=== PATIENT | female | born 1965 ===

== ENCOUNTER 2020-07-19 18:31 | Emergency (ER) | payer OTHER ==
[2020-07-19] MEDS ORDERED: Aspirin 81 MG Tab.Chew PO ONE (18:48)
[2020-07-19] MEDS ORDERED: Sodium Chloride 0.9% 10 ML Syringe FLUSH PRN (18:48)
[2020-07-19] MEDS: Nitroglycerin 0.4 MG Tab.SL SL PRN ×3 (18:50→19:51)
[2020-07-19] MEDS ORDERED: Pantoprazole 40 MG Vial IVPUSH ONE (18:50)
--- NOTE | 2020-07-19 18:53 | EDM.PDOC ---
ED HPI GENERAL MEDICAL PROBLEM - General Chief Complaint: Cardiovascular Problem Stated Complaint: CHEST PAIN Time Seen by Provider: 07/19/20 18:49 Source of Information: Reports: Patient History Limitations: Reports: No Limitations - History of Present Illness INITIAL COMMENTS - FREE TEXT/NARRATIVE: Presents with substernal chest pressure that began @2 hours. Pain radiates to back. Chest pain now more sharp. Did feel SOB at home. PMHx significant for Asthma. No prior h/o CAD or DVT/PE. Denies abdominal pain or nausea. No significant family history of CAD. Duration: Hour(s): (2) Location: Reports: Chest Severity: Moderate L anterior chest radiating into L lat neck Pain Score (Numeric/FACES): 7 - Related Data Allergies Allergy/AdvReac Type Severity Reaction Status Date / Time No Known Allergies Allergy Verified 05/29/14 12:16 Home Meds: Home Meds Lisinopril/Hydrochlorothiazide [Lisinopril-Hctz 10-12.5 mg Tab] 1 tab BEDTIME 07/19/20 [History] Pantoprazole Sodium [Protonix] 40 mg PO DAILY #14 tablet.dr 07/19/20 [Rx] rOPINIRole [Requip] 1 mg PO TID PRN 07/19/20 [History] Past Medical History Cardiovascular History: Denies: Blood Clots/VTE/DVT, CAD, [place] Respiratory History: Reports: Asthma ED ROS GENERAL - Review of Systems Review Of Systems: Comprehensive ROS is negative, except as noted in HPI. ED EXAM, GENERAL - Physical Exam Exam: See Below Exam Limited By: No Limitations General Appearance: Alert, WD/WN, No Apparent Distress Throat/Mouth: No Airway Compromise Head: Atraumatic, Normocephalic Neck: Full Range of Motion Respiratory/Chest: No Respiratory Distress, Lungs Clear, Normal Breath Sounds, No Accessory Muscle Use, Chest Non-Tender Cardiovascular: Regular Rate, Rhythm, No Murmur GI/Abdominal: Normal Bowel Sounds, Soft, Non-Tender, No Distention Back Exam: Full Range of Motion Extremities: Normal Range of Motion, No Pedal Edema Neurological: Alert, Oriented, Normal Cognition Psychiatric: Normal Affect, Anxious Skin Exam: Warm, Dry, Intact, Normal Color #1 Interpretation EKG Date: 07/19/20 Time: 18:41 Rhythm: NSR Rate (Beats/Min): 82 [place]: Normal P-Wave: Present QRS: Normal ST-T: Normal QT: Normal #2 Interpretation EKG Date: 07/19/20 Time: 21:29 Rhythm: NSR Rate (Beats/Min): 79 [place]: Normal P-Wave: Present QRS: Normal ST-T: Normal QT: Normal Comparison: No Change (from EKG #1) Course - Vital Signs Last Recorded V/S: Last Vital Signs Temp 36.5 C 07/19/20 18:31 Pulse 89 07/19/20 22:43 Resp 22 H 07/19/20 18:31 BP 140/107 H 07/19/20 19:51 Pulse Ox 98 07/19/20 22:43 - Orders/Labs/Meds Orders: Active Orders 24 hr Category Date Time Status EKG Documentation Completion [RC] ASDIRECTED Care 07/19/20 18:48 Active EKG Documentation Completion [RC] ASDIRECTED Care 07/19/20 20:15 Active RT Aerosol Therapy [RC] ASDIRECTED Care 07/19/20 22:35 Active Ang Chest [CT] Stat Exams 07/19/20 19:53 Taken CXR [Chest 1V Frontal] [CR] Stat Exams 07/19/20 18:48 Taken Sodium Chloride 0.9% [Saline Flush] Med 07/19/20 18:48 Active 10 ml FLUSH ASDIRECTED PRN Saline Lock Insert [OM.PC] Routine Oth 07/19/20 18:48 Ordered EKG 12 Lead [EK] Stat Ther 07/19/20 18:48 Ordered EKG 12 Lead [EK] Stat Ther 07/19/20 21:30 Ordered Medication Orders Sodium Chloride (Saline Flush) 10 ml FLUSH ASDIRECTED PRN PRN Reason: Keep Vein Open Last Admin: 07/19/20 18:49 Dose: 10 ml Documented by: KVNG Labs: Laboratory Tests 07/19/20 07/19/20 07/19/20 Range/Units 18:40 18:40 18:40 WBC 11.3 H (3.0-10.3) x10-3/uL RBC 4.74 (3.60-5.20) x10(6)uL Hgb 13.2 (11.4-15.5) g/dL Hct 39.6 (34.2-48.2) % MCV 83.6 (76.7-100.5) fL MCH 27.8 (23.9-33.9) pg MCHC 33.3 (31.9-34.8) g/dL RDW 13.9 (12.3-16.5) % Plt Count 286 (151-488) x10(3)uL MPV 7.3 (7.1-12.4) fL Neut % (Auto) 51.4 (30.8-76.2) % Lymph % (Auto) 39.0 (18.4-52.1) % [place] % (Auto) 5.4 (4.4-15.7) % Eos % (Auto) 2.8 (0.6-8.1) % Baso % (Auto) 1.4 (0.2-1.5) % Neut # (Auto) 5.8 (1.5-6.3) x10-3/uL Lymph # (Auto) 4.4 (1.0-4.4) x10-3/uL [place] # (Auto) 0.6 (0.3-1.0) x10-3/uL Eos # (Auto) 0.3 (0.0-0.8) x10-3/uL Baso # (Auto) 0.2 H (0.0-0.1) x10-3/uL PT 10.1 (9.0-11.1) sec INR 0.94 L (1.00-1.24) APTT 23.4 L (24.4-33.2) SECONDS D-Dimer, Quantitative 0.78 H (0.0-0.59) mg/LFEU Sodium 142 (135-145) mmol/L Potassium 3.2 L (3.5-5.3) mmol/L Chloride 102 (100-110) mmol/L Carbon Dioxide 29 (21-32) mmol/L BUN 12 (7-18) mg/dL Creatinine 0.9 (0.55-1.02) mg/dL Est Cr Clr Drug Dosing TNP Estimated GFR (MDRD) > 60 (>60) BUN/Creatinine Ratio 13.3 (9-20) Glucose 105 (80-116) mg/dL Calcium 8.6 (8.6-10.2) mg/dL Total Bilirubin 0.2 (0.1-1.3) mg/dL AST 20 (5-25) IU/L ALT 32 (12-36) U/L Alkaline Phosphatase 104 (56-112) IU/L Troponin I (4.0-60.3) pg/mL Total Protein 7.9 (6.0-8.0) g/dL Albumin 4.1 (3.5-5.2) g/dL Globulin 3.8 g/dL Albumin/Globulin Ratio 1.1 SARS-CoV-2 RNA (EDDY) (NEGATIVE) 07/19/20 07/19/20 07/19/20 Range/Units 18:40 21:26 21:30 WBC (3.0-10.3) x10-3/uL RBC (3.60-5.20) x10(6)uL Hgb (11.4-15.5) g/dL Hct (34.2-48.2) % MCV (76.7-100.5) fL MCH (23.9-33.9) pg MCHC (31.9-34.8) g/dL RDW (12.3-16.5) % Plt Count (151-488) x10(3)uL MPV (7.1-12.4) fL Neut % (Auto) (30.8-76.2) % Lymph % (Auto) (18.4-52.1) % [place] % (Auto) (4.4-15.7) % Eos % (Auto) (0.6-8.1) % Baso % (Auto) (0.2-1.5) % Neut # (Auto) (1.5-6.3) x10-3/uL Lymph # (Auto) (1.0-4.4) x10-3/uL [place] # (Auto) (0.3-1.0) x10-3/uL Eos # (Auto) (0.0-0.8) x10-3/uL Baso # (Auto) (0.0-0.1) x10-3/uL PT (9.0-11.1) sec INR (1.00-1.24) APTT (24.4-33.2) SECONDS D-Dimer, Quantitative (0.0-0.59) mg/LFEU Sodium (135-145) mmol/L Potassium (3.5-5.3) mmol/L Chloride (100-110) mmol/L Carbon Dioxide (21-32) mmol/L BUN (7-18) mg/dL Creatinine (0.55-1.02) mg/dL Est Cr Clr Drug Dosing Estimated GFR (MDRD) (>60) BUN/Creatinine Ratio (9-20) Glucose (80-116) mg/dL Calcium (8.6-10.2) mg/dL Total Bilirubin (0.1-1.3) mg/dL AST (5-25) IU/L ALT (12-36) U/L Alkaline Phosphatase (56-112) IU/L Troponin I 4.9 6.0 (4.0-60.3) pg/mL Total Protein (6.0-8.0) g/dL Albumin (3.5-5.2) g/dL Globulin g/dL Albumin/Globulin Ratio SARS-CoV-2 RNA (EDDY) Negative (NEGATIVE) Meds: Medications Generic Name Dose Route Start Last Admin Trade Name Frenicolle PRN Reason Stop Dose Admin Sodium Chloride 10 ml 07/19/20 18:48 07/19/20 18:49 Saline Flush FLUSH 10 ml ASDIRECTED PRN Administration Keep Vein Open Discontinued Medications Generic Name Dose Route Start Last Admin Trade Name Freq PRN Reason Stop Dose Admin Albuterol 2.5 mg 07/19/20 22:34 07/19/20 22:39 Proventil Neb Soln NEB 07/19/20 22:35 2.5 mg ONETIME ONE Administration Aspirin 324 mg 07/19/20 18:48 07/19/20 18:55 Aspirin PO 07/19/20 18:49 324 mg ONETIME ONE Administration Iopamidol 100 ml 07/19/20 19:57 07/19/20 20:34 Isovue-370 (76%) IV 07/19/20 19:58 90 ml . DIRECTED ONE Administration Lorazepam 0.5 mg 07/19/20 19:03 07/19/20 19:08 Ativan IVPUSH 07/19/20 19:04 0.5 mg ONETIME ONE Administration Nitroglycerin 0.4 mg 07/19/20 18:49 07/19/20 19:51 Nitrostat SL 0.4 mg Q5M PRN Administration Chest Pain Pantoprazole Sodium 40 mg 07/19/20 18:50 07/19/20 18:55 Protonix Iv IVPUSH 07/19/20 18:51 40 mg ONETIME ONE Administration Potassium Chloride 20 meq 07/19/20 22:06 07/19/20 22:21 Klor-Con M20 PO 07/19/20 22:07 20 meq ONETIME ONE Administration - Radiology Interpretation Free Text/Narrative:: CXR: No acute process. (ED provider interpretation) CTA Chest: FINDINGS: Pulmonary arteries: Adequate contrast opacification with no filling defects to suggest an acute pulmonary embolus. Remainder of the chest: Normal heart size. No pericardial effusion. Normal caliber thoracic aorta. No lymphadenopathy by size criteria. There are patchy ground-glass opacities seen in the posterior/dependent distribution. Given the low lung volumes, these findings are likely related to atelectasis. Multifocal infectious or inflammatory process is considered less likely. No pleural fluid. Upper abdomen: No acute abnormality. Cholecystectomy. Fatty liver. Tiny nonobstructing stone superior pole right kidney. Bones: No acute abnormality. Low-grade degenerative changes. IMPRESSION: 1. No CT evidence of an acute pulmonary embolus. 2. Posterior dependent ground-glass opacities in both lungs, likely related to atelectasis given the low lung volumes. An acute multifocal infectious or inflammatory process is considered less likely. Clinically correlate. 3. Incidental findings as noted. Dictated by Raleigh Pyle MD @ 07/19/2020 9:18:21 PM - Re-Assessments/Exams Free Text/Narrative Re-Assessment/Exam: 07/19/20 20:19 Chest pain resolved after NTG SL x 3, Protonix 40mg IV, and Ativan 0.5mg IV. 07/19/20 22:38 Still chest pain free. Complains of SOB. 07/19/20 22:50 SOB resolved after Albuterol. Departure - Departure Time of Disposition: 22:50 Disposition: Home, Self-Care 01 Condition: Good Clinical Impression: Chest pain Qualifiers: Chest pain type: unspecified Qualified Code(s): R07.9 - Chest pain, unspecified Prescriptions: Pantoprazole Sodium [Protonix] 40 mg PO DAILY #14 tablet. Instructions: Nonspecific Chest Pain, Adult, [id number] Referrals: Anali Pena [facility]IST[facility] [Primary Care Provider] - 2 Days Forms: ED Department Discharge Additional Instructions: Take a baby Aspirin (81 mg) daily. Fill the Protonix prescription and take as directed. Use your inhaler has needed. Follow up with your primary physician in 2-3 days. Return to the ER if symptoms worsen. Sepsis Event Note (ED) - Focused Exam Vital Signs: Vital Signs Temp Pulse Resp BP BP Pulse Ox Pulse Ox 07/19/20 22:43 89 98 07/19/20 19:51 140/107 H 07/19/20 19:13 133/86 07/19/20 18:50 150/101 H 07/19/20 18:31 36.5 C 86 22 H 148/83 H 97 - My Orders Last 24 Hours: My Active Orders 07/19/20 18:48 EKG Documentation Completion [RC] ASDIRECTED CXR [Chest 1V Frontal] [CR] Stat Sodium Chloride 0.9% [Saline Flush] 10 ml FLUSH ASDIRECTED PRN Saline Lock Insert [OM.PC] Routine EKG 12 Lead [EK] Stat 07/19/20 19:53 Ang Chest [CT] Stat 07/19/20 20:15 EKG Documentation Completion [RC] ASDIRECTED 07/19/20 21:30 EKG 12 Lead [EK] Stat 07/19/20 22:35 RT Aerosol Therapy [RC] ASDIRECTED - Assessment/Plan Last 24 Hours: My Active Orders 07/19/20 18:48 EKG Documentation Completion [RC] ASDIRECTED CXR [Chest 1V Frontal] [CR] Stat Sodium Chloride 0.9% [Saline Flush] 10 ml FLUSH ASDIRECTED PRN Saline Lock Insert [OM.PC] Routine EKG 12 Lead [EK] Stat 07/19/20 19:53 Ang Chest [CT] Stat 07/19/20 20:15 EKG Documentation Completion [RC] ASDIRECTED 07/19/20 21:30 EKG 12 Lead [EK] Stat 07/19/20 22:35 RT Aerosol Therapy [RC] ASDIRECTED
[2020-07-19] MEDS ORDERED: LORazepam 2 MG/ML SDV IVPUSH ONE (19:03)
[2020-07-19] MEDS ORDERED: Iopamidol 755 Mg/ML 100 ML Bottle IV ONE (19:57)
[2020-07-19] MEDS ORDERED: Potassium Chloride 20 MEQ Tab.ER PO ONE (22:06)
[2020-07-19] MEDS ORDERED: Albuterol 0.083% 2.5 MG/3 ML Neb Soln NEB ONE (22:34)
--- NOTE | 2020-07-20 10:30 | CR ---
INDICATION: Chest pain centrally, unable to take a full inspiration. CHEST ONE VIEW: An AP upright portable view of the chest was obtained 07/19/20 - no comparisons. Heart did not appear enlarged and appeared normal in shape. There are some minimal calcifications suggested in the arch of the aorta. Overlying EKG leads are noted. No definite active infiltrate or effusion was seen. Findings suggest exogenous obesity. IMPRESSION: No acute process. MTDD
== END 2020-07-19 23:11 | disposition home or self-care (01) ==
LOC: FB.ED 18:31
DX: R07.9 Chest pain, unspecified (principal); J45.909 Unspecified asthma, uncomplicated; Z20.822 Contact with and (suspected) exposure to COVID-19; Z79.899 Other long term (current) drug therapy
CPT/HCPCS: 36415; 71045; 71275; 80053; 84484; 85025; 85379; 85610; 85730; 93005; 96374; 96375; 99284; 99285-25; A9270-GY; C9113; J2060; Q9967; U0002